=== PATIENT | male | born 1970 | race African-American/Black ===

== ENCOUNTER 2025-03-30 16:28 | Emergency (ER) | payer OTHER, SELFPAY ==
[2025-03-30 16:29] VITALS: BP 169/103; PULSE 78; RESP 18; TEMP 36.7; O2SAT 99
[2025-03-30 16:35] VITALS: BMI 21.1
[2025-03-30 16:39] VITALS: BMI 21.1
--- NOTE | 2025-03-30 16:41 | PD.EDADULT ---
ED General RME/HPI General Chief complaint: Recheck/Abnormal Lab/Rx Stated complaint: INTERMEDIATE CLEARANCE Time Seen by Provider: 03/30/25 16:40 Arrival date/time: 03/30/25 16:28 CC: Low calcium HPI patient presents to the ER handcuffed he is a prisoner, with an escort, with laboratory results that show that the patient has a calcium of 6.6 now requesting correction. The patient has no specific complaints including chest pain twitching nausea vomiting blurred vision seeing spots. Patient does not have any history of low potassium. Patient states he has a history of hypertension. Takes amlodipine 5 mg on a regular basis. Patient denies chest pain shortness of breath or difficulty breathing. Related Data Allergies Allergy/AdvReac Type Severity Reaction Status Date / Time No Known Allergies Allergy Verified 03/30/25 16:41 Review of Systems Review of Systems Narrative Review of Systems: GEN: No fever, no chills, no weight loss EYES: No discharge, no visual changes, no pain HEENT: No ear pain, no congestion, no sore throat PULM: No shortness of breath, no cough, no congestion CV: No chest pain, no dyspnea on exertion, no palpitations GI: No nausea, no vomiting, no diarrhea, no pain, no constipation : No frequency, no urgency, no dysuria MUSC/SKEL: No joint pain, no back pain SKIN: No rash PSYCH: No hallucinations, no depression HEME/LYMPH: No easy bleeding or bruising tendencies NEURO: No weakness, no headache ED Exam Narrative Physical exam: [General: Not in any acute distress Head normocephalic HEENT: Within acceptable limits Neck is supple nontender Chest equal chest rise nontender to palpation Respiratory: Clear to auscultation no wheezes crackles or rubs CV: Rate rhythm is regular no murmurs rubs or clicks Abdomen is soft nontender no masses positive bowel sounds all 4 quadrants Back: No CVA tenderness no spinous process tenderness from cervical spine thoracic and lumbar spine Skin: Intact no petechiae rash induration ulceration or crepitus Extremities: Moving all extremity against resistance cap refill less than 2 seconds neurosensory intact Neuro: Awake alert oriented x3 Glascow coma 15 no focal deficits] Course Quality Measures none Orders Category Date Time Status CMP [Comprehensive Metabolic Panel] Stat Lab 03/30/25 16:59 Completed Vitamin D 25 Hydroxy Total Stat Lab 03/30/25 16:59 Received Vitamin D, 1,25-Dihydroxy* Stat Lab 03/30/25 16:59 Received Vital Signs Vital signs: Vital Signs Temperature 98.1 F 03/30/25 16:29 Pulse Rate 78 03/30/25 16:29 Respiratory Rate 18 03/30/25 16:29 Blood Pressure 169/103 H 03/30/25 16:29 Pulse Oximetry (%) 99 03/30/25 16:29 Oxygen Delivery Method Room Air 03/30/25 16:29 Discharge Plan Plan Patient Disposition: [facility]/Court/Law Patient condition on transfer: Stable Prescriptions/Referrals Referrals: No Primary/Family,Physician [Primary Care Provider] - In 1 week Problem List Clinical Impression: Medical clearance for incarceration Patient/Caregiver Discharge Instructions Other Activity Instructions:: Corrected calcium at 8.9 I suspect this was a bad blood draw at the shelter. Print Language: Lithuanian PA/RN [facility] Supervising Physician PA/RN [facility] Supervising Physician: Adam Delatorre ENP MDM Clinical Information Provided by: patient and law enforcement Medical Records reviewed [facility] Meds/Rx considered, not ordered None Labs/Rad/Tests considered, not ordered None Chronic Illness/Social Conditions Explain: Hypertension, no old labs for comparison. EKG EKG not done Labs Labs: interpreted by [facility] Lab(s) Interpretation(s): CMP shows no specific electrolyte imbalances renal impairment transaminitis or T. bili elevation corrected calcium is 8.9. Imaging Imaging interpretation: none Diagnosis Differential Diagnosis ED Complaint MDM: Hypercalcemia hypocalcemia normal calcium levels
[2025-03-30 17:28] LABS: Alanine Aminotransferase 12 U/L (10-49); Albumin, Serum 4.1 gm/dL (3.5-5.0); Albumin/Globulin Ratio 1.2 (1.2-2.2); Alkaline Phosphatase 90 U/L (46-116); Anion Gap 8 (7-16); Aspartate Amino Transferase 20 U/L (0-34); BUN/Creatinine Ratio 12 Ratio (12-20); Bilirubin,Total 0.3 mg/dL (0.3-1.2); Blood Urea Nitrogen 14 mg/dL (9-23); Calcium 8.9 mg/dL (8.3-10.6); Calcium (Corrected) 8.9 mg/dL (8.5-10.1); Carbon Dioxide 29.7 mMol/L (20.0-31.0); Chloride 104 mMol/L (98-107); Creatinine (Component) 1.2 mg/dL (0.6-1.3); Estimated Creatinine Clearance 73.9 mL/min (>60); Globulin 3.3 gm/dL (2.3-3.5); Glucose 88 mg/dL (74-106); Osmolality,Calculated 282 (275-295); Potassium 4.0 mMol/L (3.4-5.1); Sodium 142 mMol/L (136-145); Total Protein 7.4 gm/dL (5.7-8.2); eGFR > 60 See Note
[2025-03-30 19:06] LABS: Vitamin D 25 Hydroxy Total 29.7 ng/mL (7.3-40.2)
[2025-04-05 07:13] LABS: Vitamin D,1,25 (OH)2,Total 54 pg/mL (18-72); Vitamin D2, 1,25 (OH)2 <8 pg/mL; Vitamin D3, 1,25 (OH)2 54 pg/mL
== END 2025-03-30 17:45 ==
PROVIDERS: Registered Nurse General Practice; Emergency Provider Family Medicine
DX: Z02.89 Encounter for other administrative examinations (principal); I10 Essential (primary) hypertension
CPT/HCPCS: 36415; 80053; 82306; 82652; 99282